=== PATIENT | female | born 1945 | race American Indian/Alaskan Native ===

== ENCOUNTER 2017-04-22 10:02 | Day surgery (SDC) | payer MEDICARE, OTHER, BC ==
[2017-04-15 10:15] VITALS: BMI 30.3
[2017-04-22] MEDS ORDERED: Midazolam 2 MG/2 ML VIAL ONE (11:44)
[2017-04-22] MEDS ORDERED: Propofol 10 mg/ml Inj (20 ML) ONE (11:44)
[2017-04-22] MEDS ORDERED: ceFAZolin IV 2 gm in Dextrose 1 GM/50 ML BAG IVPB ONE (12:15)
[2017-04-22] MEDS ORDERED: Iohexol 240 (50 ml) ONE (12:20)
[2017-04-22] MEDS ORDERED: Morphine 4 MG/ML VIAL ONE (13:07)
--- NOTE | 2017-04-22 13:30 | PCM.SURG1 ---
Surgeon's Initial Post Op Note - Surgeon's Notes Surgeon: Too Farm Reporter: Butch PGY2, Johanna PGY1 Type of Anesthesia: General Endo Pre-Operative Diagnosis: Cholelithiasis Operative Findings: gallstones Post-Operative Diagnosis: same Operation Performed: laparoscopic cholecystectomy Specimen/Specimens Removed: gallbladder Estimated Blood Loss: EBL {In ML}: 10 Blood Products Given: N/A Drains Used: No Drains Post-Op Condition: Good Date of Surgery/Procedure: 04/22/17 Time of Surgery/Procedure: 13:30
[2017-04-22] MEDS ORDERED: Oxycodone/Acetaminophen 5/325 mg Tab PO PRN (13:31)
[2017-04-22] MEDS ORDERED: HYDROmorphone 0.5 mg/0.5 ml ISec IVP PRN (13:39)
[2017-04-22 15:44] VITALS: O2SAT 99
--- NOTE | 2017-04-22 16:42 | RAD ---
PROCEDURE: Intraoperative Fluoroscopy. HISTORY: CHOLECYSTITIS FINDINGS: Fluoroscopic assistance was provided for intraoperative cholangiogram. Total fluoroscopic time (continuous mode) utilized during the procedure: 33.5 seconds.. Please refer to the operative
[2017-04-22 17:21] VITALS: BP 144/54; PULSE 84; RESP 18; TEMP 97.8
--- NOTE | 2017-04-23 07:54 | OP ---
PROCEDURE DATE: 04/22/2017 PREOPERATIVE DIAGNOSES: Cholecystitis, cholelithiasis. POSTOPERATIVE DIAGNOSES: Cholecystitis, cholelithiasis. PROCEDURE CARRIED OUT: Laparoscopic cholecystectomy with C-arm cholangiogram. SURGEON: Devin Gage Jr., MD NAIL EXPERT: Dr. Spencer, resident and Dr. Rae, resident. ANESTHESIOLOGIST: Latasha Driver CRNA. INDICATIONS: The patient is a 71-year-old woman with a history of adult onset diabetes, history of b reast cancer, TRAM flap reconstruction and subsequent repair of a hernia, who comes in for elective r emoval of her gallbladder. OPERATIVE FINDINGS: A cholangiogram carried out through the cystic duct showed free flow into the du odenum and visualization of the hepatic radicals and no evidence of any stones or stricture. View of safety was obtained prior to clipping the vessels and structures. PROCEDURE: The patient was given general anesthesia, intravenous antibiotics, Venodyne boots were ap plied. Initially, we placed a Veress needle in the left upper quadrant of the abdomen and placed a 5 mm trocar via the left upper quadrant. We were unable to visualize the rest of the peritoneal cavit y. Careful inspection was made at this site see that there was no evidence of any bowel injury in th e region or any injury of any significant bleeding. Subsequent to this, we then made another punctur e in the right upper quadrant of the abdomen and at this point, we were able to see that there were a dhesions adjacent to the area of our initial puncture. These were lysed and then we simply placed, b y direct vision, a puncture above the umbilicus and a puncture just to the left of the midline. At t his point, we were able to elevate the gallbladder, identify the cystic duct and cystic artery, obtai manny a view of safety, carried out a cholangiogram. We then removed the gallbladder from the liver be d and after obtaining excellent hemostasis in the liver bed, removed the gallbladder in a bag just ab ove the umbilicus. The wounds were then closed direct closure, visualized fascial closure of the per iumbilical incision. There were no other adhesions noted, no other hernias noted and the initial pun cture site in the left upper quadrant was examined, seeing no signs of any bowel injury or other inju ry to the adjacent structures. We then closed the abdomen and closed the skin with a subcuticular cl osure. Blood loss of procedure was less than 20 mL. OPERATION CARRIED OUT: Laparoscopic cholecystectomy with C-arm cholangiogram. Devin Gage Jr., MD cc:Rich Barrett MD 58 TT: 04/22/2017 14:42:36 04/23/2017 06:52:37
== END 2017-04-22 17:20 | disposition home or self-care (01) ==
LOC: C.SDS 10:02
PROVIDERS: ATTEND Surgery Vascular Surgery
DX: K80.12 Calculus of gallbladder with acute and chronic cholecystitis without obstruction (principal); E11.9 Type 2 diabetes mellitus without complications; Z79.4 Long term (current) use of insulin
CPT/HCPCS: 47563; 76000; 82948; 88304; J0690; J1100; J1170; J1885; J2001; J2250; J2270; J2405; J2704; J3010; J7040; Q9966